=== PATIENT | female | born 1960 | race Caucasian/White ===

== ENCOUNTER 2018-01-13 22:59 | Emergency (ER) | payer OTHER ==
[~2018-01-13] VITALS: Ht 162.6 cm; Wt 115.3 kg
[2018-01-13 23:10] VITALS: TEMP 36.6; Ht 162.6 cm; Wt 115.3 kg
--- NOTE | 2018-01-13 23:47 | EMERGENCY ROOM VISIT NOTE ---
History Report prepared by Iris: Doug Hunter Under the Supervision of: Dr. Wally Olivarez M.D. First contact with patient: 23:17 Chief Complaint: RIB PAIN Stated Complaint: FALL; HURT LEFT SIDE RIBS History of Present Illness The patient is a 57 year old female who presents to the Emergency Room with complaints of constant left sided rib pain beginning 13 hours ago. She currently rates her discomfort an 8/10 in severity. The patient states she was trying to pull her luggage with both hands. She reports her foot got caught and made her fall forward. The patient notes she landed on her left rib area. She states she was wearing a scoliosis brace on her lower back when she fell. The patient reports she took four ibuprofen around 12 hours ago, but it did not help. She notes twisting and pressing on it increases her discomfort. The patient reports she is short of breath and deep breathing hurts. The patient states her pain is physical from falling and does not think it is internal. She denies taking blood thinners. She notes she has a history of left sided pneumonia. Source of History: patient Onset: 13 hours ago Position: other (left sided rib) Symptom Intensity: 8/10 Timing: constant Modifying Factors (Worsening): movement (twisting), other (pressing on it) Associated Symptoms: + SOB Review of Systems See HPI for pertinent positives & negatives. A total of 10 systems reviewed and were otherwise negative. Past Medical & Surgical Medical Problems: (1) Asthma (2) Bronchitis (3) PNA (pneumonia) Family History Cancer Diabetes mellitus Heart disease Hypertension Lung disease Social History Smoking Status: Never Smoker Smokeless Tobacco Use: No Alcohol Use: none Marital Status: single Housing Status: lives alone Current/Historical Medications Scheduled PRN Oxycodone/Acetaminophen 5MG/325MG (Percocet 5MG/325MG), 1-2 TAB PO Q4H PRN for Pain Physical Exam Vital Signs Date Time Temp Pulse Resp B/P (MAP) Pulse Ox O2 Delivery O2 Flow Rate FiO2 01/14/18 01:50 75 16 159/71 100 01/13/18 23:10 36.6 77 16 168/85 100 Room Air Physical Exam GENERAL: Awake, alert, well-appearing, in no acute distress HENT: Normocephalic, atraumatic. Oropharynx unremarkable. Non-tender C-spine. EYES: Normal conjunctiva. Sclera non-icteric. NECK: Supple. No nuchal rigidity. FROM. No JVD. RESPIRATORY: Clear to auscultation. CARDIAC: Regular rate, normal rhythm. Extremities warm and well perfused. Pulses equal. ABDOMEN: Soft, non-distended. Tenderness to palpation of the 10th rib area on the left side. No rebound or guarding. No masses. RECTAL: Deferred. MUSCULOSKELETAL: Chest examination reveals no tenderness. The back is symmetrical on inspection without obvious abnormality. There is no CVA tenderness to palpation. No joint edema. Tenderness to the left shoulder. LOWER EXTREMITIES: Calves are equal size bilaterally and non-tender. No edema. No discoloration. NEURO: Normal sensorium. No sensory or motor deficits noted. SKIN: No rash or jaundice noted. Medical Decision & Procedures ER Provider Diagnostic Interpretation: X-ray results as stated below per interpretation by me: C-spine 6 views: No evidence of fracture, dislocation, or subluxation. Surgical hardware in place. One view chest: No pneumothorax, congestion, or pneumonia. Four view of chest/left ribs: No acute fracture, dislocation, or subluxation. Three view of left shoulder: No acute fracture, dislocation, or subluxation. Medications Administered Medications (Trade) Dose Ordered Sig/Kaitlynn Route Start Time Stop Time Status Last Admin Dose Admin Ibuprofen (Motrin Tab) 600 mg NOW STAT PO 01/14/18 00:06 01/14/18 00:08 DC 01/14/18 00:14 600 MG Oxycodone/ Acetaminophen (Percocet 5-325mg Tab) 2 tab NOW ONCE PO 01/14/18 00:15 01/14/18 00:16 DC 01/14/18 00:13 2 TAB Oxycodone/ Acetaminophen (Percocet 5/ 325MG Home Pack) 1 homepack UD ONCE PO 01/14/18 01:15 01/14/18 01:16 DC 01/14/18 01:41 1 HOMEPACK ED Course 2352: Past medical records reviewed. The patient was evaluated in room A03. A complete history and physical examination was performed. 0006: Ordered Ibuprofen 600mg PO 0015: Ordered Oxycodone/Acetaminophen 2 tab PO 0115: Ordered Oxycodone/Acetaminophen 1 homepack PO 0116: Upon reexamination the patient is resting. I offered to do a CT scan of the chest to evaluate for blood and trauma. She refused and said she would follow-up with her orthopedic doctor at [facility]. I discussed results and treatment plan with the patient. She verbalizes agreement and understanding. The patient is ready for discharge. Medical Decision Differential diagnosis: Etiologies such as fracture, dislocation, intra-abdominal, pneumothorax, intrathoracic , intracranial, neurologic, as well as other traumatic pathologies were entertained. This is a 57-year-old female who presents emergency department complaining of rib pain after a fall. Using shared medical decision making with the patient I offered to do CAT scans of the patient's spine however the patient and I decided we were going to perform x-rays. She was sent for x-rays of her chest, ribs as well as shoulder. She does not appear to have any acute fractures dislocations or subluxations. The patient presents the emergency department during a period of high volume and high acuity. She was given ibuprofen as well as Percocet for the pain. The patient promises to follow-up with her primary care physician. Medication Reconcilliation Current Medication List: was personally reviewed by me Blood Pressure Screening Patient's blood pressure: Elevated blood pressure Blood pressure disposition: Referred to PCP Impression Primary Impression: Fall Additional Impressions: Left shoulder pain Rib pain on left side Scribe Attestation The scribe's documentation has been prepared under my direction and personally reviewed by me in its entirety. I confirm that the note above accurately reflects all work, treatment, procedures, and medical decision making performed by me. Departure Information Dispostion Home / Self-Care Prescriptions Oxycodone/Acetaminophen 5MG/325MG (PERCOCET 5MG/325MG) Tab 1-2 TAB PO Q4H Y for Pain, #14 TAB Prov: Wally Olivarez MD 01/14/18 Referrals No Doctor, Assigned (PCP) Forms HOME CARE DOCUMENTATION FORM, IMPORTANT VISIT INFORMATION, WORK / SCHOOL INSTRUCTIONS Patient Instructions ED Contusion Vs Minor Fx Rib, ED Fall Dizziness Weakn Balance, ED Shoulder Pain [facility], [facility] Additional Instructions Use incentive spirometer every 15 minutes Follow up with Orthopaedics for continued pain You were found to have an elevated blood pressure today (>120 sytolic or >90 diastolic). Per medicare guidelines, you need to follow up with this blood pressure screening with your Primary Care Physician (PCP). For a new PCP call [phone]. You received narcotic or benzodiazepene medication while in the emergency room today. This is an addictive medication that may cause drowziness as well as constipation. Do not drive, operate heavy machinery, or drink alcohol under the influence of this medication. Take 600 mg Ibuprofen every 6 hours Take Percocet for breakthrough pain Radiographs and CTs will be reread by a radiologist in the morning. You have been examined and treated today on an emergency basis only. This is not a substitute for, or an effort to provide, complete comprehensive medical care. It is impossible to recognize and treat all injuries or illnesses in a single emergency department visit. It is therefore important that you follow up closely with your PCP. Call as soon as possible for an appointment. Thank you for your time and consideration. I look forward to speaking with you again soon. Please don't hesitate to call us if you have any questions. Problem Qualifiers Primary Impression: Fall Encounter type: initial encounter Qualified Codes: W19.XXXA - Unspecified fall, initial encounter Additional Impressions: Left shoulder pain Chronicity: acute Qualified Codes: M25.512 - Pain in left shoulder
[2018-01-14] MEDS ORDERED: IBUPROFEN 600 MG TAB PO STA (00:06)
[2018-01-14] MEDS ORDERED: OXYCODONE/ACETAMINOPHEN 5-325 TAB PO ONE (00:15)
[2018-01-14] MEDS ORDERED: PERCOCET HOME PACK PO ONE (01:15)
[2018-01-14] MEDS ORDERED: OXYC-57 PO (01:21)
[2018-01-14 01:50] VITALS: BP 159/71; PULSE 75; O2SAT 100
--- NOTE | 2018-01-14 07:50 | DIAGNOSTIC IMAGING REPORT ---
C-SPINE ROUTINE 4 OR 5 VIEWS CLINICAL HISTORY: 57 years-old Female presenting with Pt c/o left sided rib pain. TECHNIQUE: Lateral, bilateral oblique, frontal, open-mouth odontoid, and swimmer's views of the cervical spine were obtained. COMPARISON: None. FINDINGS: Anterior cervical discectomy and fusion of C5-6. The C7 vertebral body is seen on swimmer's view only. Normal cervical lordosis. Vertebral bodies maintain normal height and alignment. Intervertebral disc heights spared at the nonoperative levels though the C6-7 intervertebral disc space likely has some degree of narrowing though suboptimally visualized. Disc osteophyte complex suggested at C6-7. No radiographic evidence of advanced osseous neural foraminal narrowing. No acute fracture or subluxation. Normal predental interval. Partially visualized internal fixation hardware in the skull. Lateral masses of C1 articulate normally with C2. Dens appears normal. No prevertebral soft tissue swelling. IMPRESSION: 1. Postsurgical changes of C5-6 ACDF. Adjacent level degenerative change suspected at C6-7 though this region is suboptimally visualized. 2. No radiographic evidence of acute osseous injury. Electronically signed by: Arturo Mark M.D. 01/14/2018 7:48 AM Dictated Date/Time: 01/14/2018 7:38 AM
--- NOTE | 2018-01-14 07:52 | DIAGNOSTIC IMAGING REPORT ---
L RIBS UNILATERAL WITH PA CHEST CLINICAL HISTORY: 57 years-old Female presenting with Pt c/o left sided rib pain. TECHNIQUE: Frontal and oblique views of the left ribs as well as PA view of the chest were obtained. COMPARISON: None. FINDINGS: Anterior cervical fusion hardware noted. No displaced left rib fracture. Cardiac silhouette mildly prominent though this may be due to prominent pericardial fat. Lungs and pleural spaces clear. Upper abdomen normal. IMPRESSION: 1. No displaced left rib fracture. 2. No acute cardiopulmonary disease. Electronically signed by: Arturo Mark M.D. 01/14/2018 7:51 AM Dictated Date/Time: 01/14/2018 7:38 AM
--- NOTE | 2018-01-14 07:54 | DIAGNOSTIC IMAGING REPORT ---
L SHOULDER MIN 2 VIEWS ROUTINE CLINICAL HISTORY: 57 years-old Female presenting with Pt c/o Left sided shoulder pain . TECHNIQUE: Internal rotation, external rotation, Grashey views of the left shoulder were obtained. COMPARISON: None. FINDINGS: Glenohumeral and acromioclavicular joints congruent. Mild osteophytosis noted at the inferior aspect of the bony glenoid. No deformity of the humeral head are no subluxation of the humeral head. No significant degenerative change of the acromioclavicular joint. No acute fracture or malalignment. No radiographic soft tissue abnormality. Anterior cervical fusion hardware noted. IMPRESSION: 1. No acute osseous injury. 2. Mild degenerative changes of the glenohumeral joint. Electronically signed by: Arturo Mark M.D. 01/14/2018 7:53 AM Dictated Date/Time: 01/14/2018 7:38 AM
== END 2018-01-14 01:50 | disposition home or self-care (01) ==
LOC: MERGE 23:03 → C.EDB 23:03 → C.EDA 01-14 01:50
DX: M25.512 Pain in left shoulder (principal); R07.81 Pleurodynia; W01.0XXA Fall on same level from slipping, tripping and stumbling without subsequent striking against object, initial encounter; J45.909 Unspecified asthma, uncomplicated

== ENCOUNTER 2023-05-09 05:46 | Inpatient (IN) ==
--- OUTSIDE RECORDS SUMMARY | 2023-05-09 05:58 | External Medical Summary | Summary of Care ---
Author Name Unknown Organization [facility] Address [address] [place] [address] Phone [phone] Care Team Providers Care Green Building Engineer Name Role Phone Kelli Munoz MD Primary Care Provider [phone] Encounter Details Date Type Department Care Team (Late st Contact Info) Description 05/07/2023 3:00 PM EST Telemedicine Formerly [facility] [address] [place] [address] Altagracia Love MD [address] [place] [address] Left leg cellulitis*; Eczema, unspecified type; Body mass index (BMI) of 40.0 to 44.9 in adult (HCC); Essential hypertension with goal blood pressure less than 130/80 Allergies Active Allergy Reactions Criticality Noted Date Comments Isak Inhibitors Cough 10/06/2018 Carbamazepine Other (Please comment) 05/29/1997 Diplopia, buzzing feeling and tremor. No problems with oxcarbazepine. Pt taking generic Codeine High Dermatological problems, e.g., rash, hivesrash Phenytoin Other (Please comment) 05/27/2018 hairloss Felbamate Other (Please comment) 05/29/1997 Sleep difficulties and balance problems [place] Hives Medium 05/27/2018 Gabapentin Rash 05/27/2018 Phenobarbital Other (Please comment) 05/27/2018 depression Tetracycline High Gastrointestinal problems, e.g., nausea, vomiting, diarrheagi upset Topiramate Other (Please comment) 07/09/2008 Hair loss Valproic Acid 05/29/1997 Hair loss Zonisamide Other (Please comment) 05/27/2018 depression documented as of this encounter (statuses as of 05/07/2023) Medications Medication Sig Dispensed Refills Start Date End Date Status ibuprofen (MOTRIN) 400 MG Tablet Take 1 Tablet by mouth every 6 hours as needed for Pain. 0 Active Albuterol Sulfate (ALBUTEROL HFA) 108 (90 BASE) MCG/ACT inhaler Inhale 2 Puffs by mouth every 6 hours as needed for Wheezing. 6.7 g 3 04/17/2019 Active albuterol sulfate (PROVENTIL) (2.5 MG/3ML) 0.083% nebulizer solutionIndications:M ild persistent asthma without complication Inhale 1 Vial via nebulizer every 4 hours as needed for Wheezing. 120 Vial 11 07/10/2019 Active Ca Cit Malate-Cholecalcifero l 250-100 MG-UNIT TABSIndications:Sympt omatic localization-related epilepsy (HCC),Vitamin D deficiency TAKE 1 TABLET BY MOUTH EVERY DAY 120 Tab 2 08/28/2019 Active busPIRone (BUSPAR) 10 MG Tablet Take 1 Tab by mouth 2 times a day. 60 Tab 4 10/27/2019 Active Pramipexole Dihydrochloride 0.5 MG Oral Tablet (MIRAPEX) 1 in morning as needed, 2 in the evening 90 Tab 3 04/05/2020 Active Methocarbamol 500 MG Oral Tablet (Robamol) Take 1 Tablet by mouth daily as needed for Muscle spasms. For muscle spasm 30 Tablet 0 10/05/2022 Active Meclizine HCl 12.5 MG Oral Tablet (Antivert)Indications :Benign paroxysmal positional vertigo, unspecified laterality Take 1 Tablet by mouth 3 times a day as needed for Dizziness. 30 Tablet 1 10/05/2022 Active carBAMazepine 200 MG Oral Tablet (Tegretol)Indications :Seizure disorder (HCC) Take 1 Tablet by mouth in the morning and 1 Tablet before bedtime. 180 Tablet 3 10/13/2022 Active Levocetirizine Dihydrochloride 5 MG Oral Tablet Take 1 Tablet by mouth every evening. 90 Tablet 1 11/05/2022 Active Losartan Potassium 50 MG Oral Tablet (Cozaar) Take 1 Tablet by mouth in the morning. 90 Tablet 1 11/05/2022 Active Additional Information Patient not taking.Reported on 04/30/2023 Fluticasone-Salmetero l 250-50 MCG/ACT Inhalation Aerosol Powder Breath Activated (Advair Diskus) Inhale 1 Puff by mouth in the morning and 1 Puff before bedtime. 180 Each 1 11/05/2022 Active Spironolactone 25 MG Oral Tablet (Aldactone) Take 1 Tablet by mouth in the morning. 90 Tablet 1 11/05/2022 Active Premarin 0.625 MG/GM Vaginal Cream (Estrogens Conjugated)Indication s:Gross hematuria,Vaginal atrophy Apply 0.5 g topically to affected area in the morning. Once daily for 1 week then administer twice a week. 30 g 5 12/23/2022 Active B-12 1000 MCG Oral TabletIndications:B12 deficiency Take 1,000 mcg by mouth every evening. 30 Tablet 11 02/24/2023 Active Vitamin D3 1.25 MG (52322 UT) Oral TabletIndications:Vit smith D deficiency Take 1 Tablet by mouth once a week. 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 (at least 30 min prior to breakfast or other meds)-lab in 11 wks. 90 Tablet 0 03/09/2023 Active Sertraline HCl 50 MG Oral Tablet (Zoloft) Take 0.5 Tablets by mouth in the morning. 0 Active diazePAM 5 MG Oral Tablet (Valium) TAKE 1 TAB BY MOUTH 1.5 HRS PRIOR TO MRI THEN 1 TAB BY MOUTH 30 MINUTES PRIOR TO MRI IF NEEDED 0 04/05/2023 Active Hyoscyamine Sulfate 0.125 MG Sublingual Tablet Sublingual (Levsin) DISSOLVE 1 TABLET UNDER THE TONGUE FOUR TIMES DAILY NEEDED FOR DIARRHEA OR ABDOMINAL CRAMPING 0 04/16/2023 Active Sulfamethoxazole-Trim ethoprim 800-160 MG Oral Tablet (Bactrim DS)Indications:Left leg cellulitis Take 1 Tablet by mouth in the morning and 1 Tablet before bedtime. Do all this for 10 days. Until gone.. 20 Tablet 0 05/06/2023 3 Active Hospital, Clinic, or Other Facility Administered Medication Ordered Dose Route Frequency Start Date End Date Status albuterol sulfate (PROVENTIL) (2.5 MG/3ML) 0.083% inhalation solution 2.5 mgIndications:Mild persistent asthma without complication 2.5 mg NEBULIZER Q4H PRN 01/07/2019 Active documented as of this encounter (statuses as of 05/07/2023) Active Problems Problem Noted Date Diagnosed Date Osteopenia of multiple sites 10/31/2019 Irritable bowel syndrome with diarrhea 0 Body mass index (BMI) of 40.0 to 44.9 in adult 1 Overview: Per Obesity protocol - Per Obesity protocol Post traumatic stress disorder (PTSD) 07/21/2018 DDD (degenerative disc disease), cervical 2018 Epilepsy 05/27/2018 Essential hypertension with goal blood pressure less than 130/80 05/27/2018 Hiatal hernia 05/27/2018 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 Encouraged to take slow deep breath, use aero chamber, and rinse after steroid. Test performed by Ester SOLAR PROCESS ENGINEER CPFT. documented as of this encounter (statuses as of 05/07/2023) Resolved Problems Problem Noted Date Diagnosed Date Resolved Date Internal hemorrhoid 06/05/2019 10/31/19 20 Body mass index (BMI) of 45. 0 to 49.9 in adult 10/31/2018 03/08/2019 Overview: Per Obesity protocol ISAK-inhibitor cough 10/06/2018 07/10/19 20 Gastroesophageal reflux dise ase with esophagitis 05/27/2018 10/05/2022 documented as of this encounter (statuses as of 05/07/2023) Immunizations Name Administration Dates Next Due COVID-19 mRNA, LNP-s, No Pre serve, 2-Dose Series ([employer]) 05/15/2021,09/05/2020,08/15/2020 PPD 02/22/2007 Pneumococcal Polysaccharide PPV23 (Pneumovax) 09/17/2016 Seasonal Influenza Virus Vac cine, Unspecified Formulation 12/22/2017 Seasonal Influenza, PF, 6 M & above, IM , (FluLaval or Fluzone) 03/17/2022,02/03/2019 Seasonal Influenza, Quadriva lent, No Preserve, Peds 03/23/2018 Seasonal Influenza, Quadriva lent,with Preserve, 3 yr & above, IM 02/01/2018,04/12/2017,02/05/2016,04/16,03/29/2014,02/08/2013,02/12/2012 ,02/23/2011,02/26/2009 Seasonal Influenza, Recombin ant, RIV4, PF, (Flublock) 02/01/2018 Seasonal Influenza, Split, I IV3, With Preserve, Inj 03/23/2018,02/01/2018,12/22/2017,04/12,02/05/2016,04/16/2015,03/29/2014 ,02/08/2013,02/12/2012,02/23/2011,10/2008 TD - Tetanus/Diptheria (ADULT) 01/23/2004 TDAP (age 10 and older)(Boostrix) 12/12/2018, Varicella Zoster Vaccine (Adult) 11/07/2014 Zoster Vaccine Recombinant (Shingrix) 09/17/2017 documented as of this encounter Social History Tobacco Use Types Packs/Day Years Used Date Smoking Tobacco: Never Smokeless Tobacco: Never Alcohol Use Standard Drinks/Week Comments No 0 (1 standard drink = 0.6 oz pur e alcohol) AUDIT-C Answer Date Recorded Frequency of Alcohol Consumption Never 05/27/2018 Average Number of Drinks Not on file 019 Frequency of Binge Drinking Not on file 08/2018 PHQ-2 Answer Date Recorded PHQ-2 Score 2 02/03/2019 Hunger Vital Sign Answer Date Recorded Within the past 12 months, y ou worried that your food would run out before you got the money to buy more. Never true 02/09/20 23 Within the past 12 months, t he food you bought just didn't last and you didn't have money to get more. Never true 02/08/2023 Sex and Gender Information Value Date Recorded Sex Assigned at Female 10/06/2018 4:00 PM EDT Gender Identity Female 10/06/2018 4:00 PM EDT Sexual Orientation Straight 10/06/2018 4: 00 PM EDT Job Start Date Occupation Industry Not on file Not on file Not on file documented as of this encounter Progress Notes * Altagracia Love MD - 05/07/2023 2:36 PM EST Subjective Catrachita Peres is a 62 year old female. No chief complaint on file. HPI: Patient location: HOME. I was in a hospital or clinic location. After connecting through [employer],patient was verified with two unique identifiers. Patient (or authorized legal mechanical service representative) was then informed that this was a Telemedicine visit and being conducted confidentially over secure lines. Methods to assure confidentiality were taken. Patient acknowledged consent and understanding of pr ivacy and security of the Telemedicine visit. The patient agreed to participate. Here for one day f/u on her leg cellulitis , Lt Was seen by other provider yesterday and took bactrim since yesterday Per pt , due to low BP and recurrent dizziness, stopped losartan and spironolactone recently Has itching legs , worse since last wed, had scratched Hx of MRSA infection Eczema + Applying body lotion too Reviewed yesterday note and pictures PMH: Patient Active Problem List Diagnosis Code DDD (degenerative disc disease), cervical M50.30 Epilepsy ([facility]) G40.909 Essential hypertension with goal blood pressure less than 130/80 I10 Hiatal hernia K44.9 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 E03.8, E06.3 Moderate episode of recurrent major depressive disorder ([facility]) F33.1 ROSE (obstructive sleep apnea) G47.33 Mild persistent asthma without complication J45.30 Post traumatic stress disorder (PTSD) F43.10 Body mass index (BMI) of 40.0 to 44.9 in adult ([facility]) Z68.41 Irritable bowel syndrome with diarrhea K58.0 Osteopenia of multiple sites M85.89 Current Outpatient Medications Medication Sig Dispense Refill ibuprofen (MOTRIN) 400 MG Tablet Take 1 Tablet by mouth every 6 hours as needed for Pain. Albuterol Sulfate (ALBUTEROL HFA) 108 (90 BASE) MCG/ACT inhaler Inhale 2 Puffs by mouth every 6 hours as needed for Wheezing. 6.7 g 3 albuterol sulfate (PROVENTIL) (2.5 MG/3ML) 0.083% nebulizer solution Inhale 1 Vial via nebulizer every 4 hours as needed for Wheezing. 120 Vial 11 Ca Cit Malate-Cholecalciferol 250-100 MG-UNIT TABS TAKE 1 TABLET BY MOUTH EVERY DAY 120 Tab 2 busPIRone (BUSPAR) 10 MG Tablet Take 1 Tab by mouth 2 times a day. 60 Tab 4 Pramipexole Dihydrochloride 0.5 MG Oral Tablet (MIRAPEX) 1 in morning as needed, 2 in the evening 90 Tab 3 Methocarbamol 500 MG Oral Tablet (Robamol) Take 1 Tablet by mouth daily as needed for Muscle spasms. For muscle spasm 30 Tablet 0 Meclizine HCl 12.5 MG Oral Tablet (Antivert) Take 1 Tablet by mouth 3 times a day as needed for Dizziness. 30 Tablet 1 carBAMazepine 200 MG Oral Tablet (Tegretol) Take 1 Tablet by mouth in the morning and 1 Tablet before bedtime. 180 Tablet 3 Levocetirizine Dihydrochloride 5 MG Oral Tablet Take 1 Tablet by mouth every evening. 90 Tablet 1 Losartan Potassium 50 MG Oral Tablet (Cozaar) Take 1 Tablet by mouth in the morning. (Patient not taking: Reported on 04/30/2023) 90 Tablet 1 Fluticasone-Salmeterol 250-50 MCG/ACT Inhalation Aerosol Powder Breath Activated (Advair Diskus) Inhale 1 Puff by mouth in the morning and 1 Puff before bedtime. 180 Each 1 Spironolactone 25 MG Oral Tablet (Aldactone) Take 1 Tablet by mouth in the morning. 90 Tablet 1 Premarin 0.625 MG/GM Vaginal Cream (Estrogens Conjugated) Apply 0.5 g topically to affected area inthe morning. Once daily for 1 week then administer twice a week. 30 g 5 B-12 1000 MCG Oral Tablet Take 1,000 mcg by mouth every evening. 30 Tablet 11 Vitamin D3 1.25 MG (10695 UT) Oral Tablet Take 1 Tablet by mouth once a week. 12 Tablet 0 Levothyroxine Sodium 100 MCG Oral Tablet (Levoxyl) Take 1 Tablet by mouth in the morning. (at least30 min prior to breakfast or other meds)-lab in 11 wks. 90 Tablet 0 Sertraline HCl 50 MG Oral Tablet (Zoloft) Take 0.5 Tablets by mouth in the morning. diazePAM 5 MG Oral Tablet (Valium) TAKE 1 TAB BY MOUTH 1.5 HRS PRIOR TO MRI THEN 1 TAB BY MOUTH 30 MINUTES PRIOR TO MRI IF NEEDED Hyoscyamine Sulfate 0.125 MG Sublingual Tablet Sublingual (Levsin) DISSOLVE 1 TABLET UNDER THE TONGUE FOUR TIMES DAILY NEEDED FOR DIARRHEA OR ABDOMINAL CRAMPING Sulfamethoxazole-Trimethoprim 800-160 MG Oral Tablet (Bactrim DS) Take 1 Tablet by mouth in the morning and 1 Tablet before bedtime. Do all this for 10 days. Until gone.. 20 Tablet 0 Current Facility-Administered Medications Medication Dose Route Frequency Provider Last Rate Last Admin albuterol sulfate (PROVENTIL) (2.5 MG/3ML) 0.083% inhalation solution 2.5 mg 2.5 mg Nebulizer Q4H VIR[place]IAN Marcos Pal MD 2.5 mg at 05/10/19 1322 Past Medical History: Diagnosis Date ISAK-inhibitor cough 10/06/2018 Asthma DDD (degenerative disc disease), cervical 05/27/2018 Epilepsia Epilepsy (HCC) 05/27/2018 Essential hypertension with goal blood pressure less than 130/80 05/27/2018 Gastroesophageal reflux disease with esophagitis 05/27/2018 Breann's disease 05/27/2018 Hypothyroidism Internal hemorrhoid 06/05/2019 Irritable bowel syndrome with diarrhea 06/05/2019 Mild persistent asthma without complication 05/27/2018 Moderate episode of recurrent major depressive disorder (HCC) 05/27/2018 ROSE (obstructive sleep apnea) 05/27/2018 Post traumatic stress disorder (PTSD) 07/21/2018 Past Surgical History: Procedure Laterality Date CRAN LOBE,TEMPORAL W ELECT Left 1996 L-/S-SPINE PARAVERTEBRAL FACET INJ,1 LEVEL 03/16/2019 L-/S-SPINE PARAVERTEBRAL FACET INJ, 1 LEVEL performed by Jt Jacobo, at OR [facility] L-/S-SPINE PARAVERTEBRL FACET INJ,2 LEVELS 03/16/2019 L-/S-SPINE PARAVERTEBRAL FACET INJ, 2 LEVELS performed by Jt Tos, at OR [facility] NECK SPINE FUSION (CERV, BELOW C2) 2007 REMOVAL OF ADENOIDS, UNDER AGE 12 REMOVAL OF TONSILS, UNDER AGE 12 REPAIR OF NASAL SEPTUM 2014 REVISE UPPER EYELID Left 2015 SACROILIAC JOINT INJECT W/GUIDANCE 07/29/2020 INJECTION SACROILIAC JOINT performed by Jt Jacobo DO at OR [facility] Review of patient's allergies indicates: Allergen Reactions Codeine Dermatological problems, e.g., rash, hivesrash Tetracycline Gastrointestinal problems, e.g., nausea, vomiting, diarrheagi upset [place] Hives Isak Inhibitors Cough Carbamazepine Other (Please comment) Diplopia, buzzing feeling and tremor. No problems with oxcarbazepine. Pt taking generic Dilantin [Phenytoin] Other (Please comment) hairloss Felbamate Other (Please comment) Sleep difficulties and balance problems Neurontin [Gabapentin] Rash Phenobarbital Other (Please comment) depression Topiramate Other (Please comment) Hair loss Valproic Acid Hair loss Zonegran [Zonisamide] Other (Please comment) depression Family History Problem Relation Age of Onset Diabetes Mother dec age 61 Coronary Artery disease Mother Lung cancer Father Diabetes Father COPD Father Other (aortic aneursym) Father Other (murder) Sister Bipolar Disorder Brother Multiple Sclerosis Sister (Half) Family Status Relation Status Mo Fa Sis (Not Specified) Bro (Not Specified) HSIS (Not Specified) Social History Socioeconomic History Marital status: Single Spouse name: Not on file Number of children: Not on file Years of education: Not on file Highest education level: Not on file Occupational History Not on file Tobacco Use Smoking status: Never Smokeless tobacco: Never Substance and Sexual Activity Alcohol use: No Drug use: No Sexual activity: Not Currently Other Topics Concern Not on file Social History Narrative Not on file Social Determinants of Health Financial Resource Strain: Not on file Food Insecurity: No Food Insecurity (02/08/2023) Hunger Vital Sign Worried About Running Out of Food in the Last Year: Never true Ran Out of Food in the Last Year: Never true Transportation Needs: Not on file Physical Activity: Not on file Stress: Not on file Social Connections: Not on file Intimate Partner Violence: Not on file Housing Stability: Not on file Review of Systems Constitutional: Positive for fatigue. Negative for activity change, appetite change, chills, diaphoresis, fever and unexpected weight change. Respiratory: Negative for shortness of breath. Cardiovascular: Positive for leg swelling. Negative for chest pain and palpitations. Skin: Positive for rash. Neurological: Negative for dizziness and light-headedness. Psychiatric/Behavioral: Positive for agitation. Negative for behavioral problems. The patient is nervous/anxious. Objective LMP (LMP Unknown) Physical Exam Constitutional: General: She is not in acute distress. Appearance: Normal appearance. She is obese. She is not ill-appearing, toxic- appearing or diaphoretic. HENT: Head: Normocephalic and atraumatic. Nose: Nose normal. Eyes: Extraocular Movements: Extraocular movements intact. Skin: Findings: Erythema (lt leg lower) and rash present. Comments: Pictures Neurological: Mental Status: She is alert and oriented to person, place, and time. Psychiatric: Comments: Anxiety ASSESSMENT/PLAN: Left leg cellulitis (Primary) Eczema, unspecified type Body mass index (BMI) of 40.0 to 44.9 in adult (HCC) Essential hypertension with goal blood pressure less than 130/80 Resume spironolactone 25 mg daily And cont bactrim for now If not improving by sun morning, go to ER for possible IV ABx Leg elevation Altagracia Love MD documented in this encounter Plan of Treatment Upcoming Encounters Date Type Department Care Team (Latest Contact Info) Description 05/26/2023 1:00 PM EST Imaging Radiology [address] [facility] [place] [address] 06/23/2023 11:00 AM EST Telemedicine Urology ImeldaIrene Burch [facility] [address] [place] [address] Jah Puentes MD [address] [place] [address] 7, Telemed [facility] Urology Ex [address] [facility] [place] [address] 07/20/2023 1:25 PM EST Telemedicine Neurology, [place] [address] [place] [address] Bowen Faustin MD [address] [place] [address] 08/25/2023 1:00 PM EDT Office Visit General Internal Medicine [employer] [address] [facility] [place] [address] Kelli Munoz MD [address] [facility] [place] [address] 09/06/2023 11:15 AM EDT Hospital Encounter ENDO [facility], Endoscopy Room [facility] [address] [place] [phone] James Smith MD [address] [place] [address] 09/06/2023 11:15 AM EDT - 09/06/2023 11:45 AM EDT Surgery ENDO [facility], Endoscopy Room [facility] [address] [place] [phone] James Smith MD [address] [place] [address] COLONOSCOPY FLEXIBLE PROXIMAL DIAGNOSTIC Scheduled Procedures Name Priority Associated Diagnoses Date/Ti me COLONOSCOPY FLEXIBLE PROXIMAL DIAGNOSTIC History of colonic polyps 09/06/2023 11:15 AM EDT Health Maintenance Due Date Last Done Comments HIV Screening 1975 Albumin/Creatinine Ratio 12/12/1979 Hepatitis C Screening 12/12/1979 HPV/Co-Test 12/12/1991 Pneumococcal Vaccine: Pediatrics (0 to 5 Years) and At-Risk Patients (6 to 64 Years) (2 - PCV) 09/17/2017 09/17/2016 Zoster Vaccines (3 of 3) 11/12/2017 09/17/2017, 10/22 Depression Screening 02/04/2020 02/03/2019 COLONOSCOPY-EVERY 5 YRS AGES 18-100 08/31/2022 08/31/2017 COVID-19 Vaccine (4 - 2022- season) 2023 05/15/2021, 09/05/2020, 08/15/2020 Influenza Vaccine (FLU shot) (#1) 2023 03/17/2022, 02/03/2019, 03/23/2018, Additional history exists DXA Scan 02/17/2023 02/17/2021, 11/08/2017 Mammogram 05/19/2023 05/19/2022, 12/23, 11/08/2017, Additional history exists GFR 03/03/2024 03/03/2023, 0909/2022, 12/10/2022, Additional history exists TSH 03/03/2024 03/03/2023, 08/23, 10/31/2019, Additional history exists Cervical Cancer Screening 07/21/2024 Pap Smear 07/21/2024 07/21/2021, 12/21/2017 Diabetes Screening 03/03/2026 03/03/2023, 0 01/26/2023, 12/10/2022, Additional history exists Lipid Panel 03/03/2028 03/03/2023, 08/23, 10/08/2017, Additional history exists DTaP,Tdap,and Td Vaccines (3 - Td or Tdap) 12/12/2028 12/12/2018, 12/18/2014, 01/23/2004 GARDASIL-HPV IMMUNIZATION SERIES Aged Out No longer eligible based on patient's age to complete this topic Hepatitis B Aged Out No longer eligi ble based on patient's age to complete this topic MENINGOCOCCAL (MENACTRA/MENVEO) Aged Out No longer eligible based on patient's age to complete this topic documented as of this encounter Medical Devices Not on filedocumented as of this encounter Visit Diagnoses Diagnosis Left leg cellulitis- Primary Cellulitis and abscess of leg, except foot Eczema, unspecified type Body mass index (BMI) of 40.0 to 44.9 in adult (HCC) Essential hypertension with goal blood pressure less than 130/80 History of colonic polyps Personal history of colonic polyps documented in this encounter Care Teams Green Building Engineer Relationship Specialty Start Date End Date Kelli Munoz MD [address] [place] [address] PCP - General Internal Medicine 10/05/22 documented as of this encounter
[2023-05-09 06:22] LABS: Basophils # (auto) 0.04 K/uL (0.00-0.20); Basophils % (auto) 0.5 %; Eosinophils # (auto) 0.08 K/uL (0.00-0.50); Eosinophils % (auto) 1.1 %; Hematocrit (blood only) 39.1 % (37.0-47.0); Hemoglobin 13.7 g/dl (12.0-16.0); Immature Granulocytes # (auto) 0.03 K/uL (0.01-0.20); Immature Granulocytes % (auto) 0.4 %; Lymphocytes # (auto) 1.72 K/uL (1.20-3.40); Lymphocytes % (auto) 23.4 %; Mean Corpuscular Hemoglobin 32.9 pg (25.0-34.0); Mean Corpuscular Volume 93.8 fL (80.0-100.0); Monocytes # (auto) 0.63 K/uL (0.11-0.59); Monocytes % (auto) 8.6 %; Neutrophils # (auto) 4.85 K/uL (1.40-6.50); Platelet Count 222 K/uL (130-400); RDW Coefficient of Variation 12.6 % (11.5-14.5); RDW Standard Deviation 43.1 fL (36.4-46.3); Red Blood Count 4.17 M/uL (4.20-5.40); White Blood Count 7.35 K/ul (4.8-10.8)
[2023-05-09 06:39] LABS: Albumin Globulin Ratio 1.2 (0.9-2); Albumin Level 4.1 gm/dl (3.4-5.0); BUN Creatinine Ratio 16.3 (10-20); Bilirubin,Total 0.4 mg/dl (0.2-1.0); Calcium 9.6 mg/dl (8.6-10.3); Est GFR (African American) 72.2 ml/min; Est GFR (Non-African American) 62.3 ml/min; Globulin 3.4 gm/dl (2.5-4.0); Potassium 3.6 mmol/L (3.5-5.1); Total Protein 7.5 gm/dl (6.0-8.3)
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
[2023-05-09] MEDS ORDERED: cefTRIAXone SODIUM 2,000 MG/50 ML BAG IV STA (06:46)
--- NOTE | 2023-05-09 06:51 | Ultrasound Report ---
ULTRASOUND LEFT LOWER EXTREMITY VENOUS CLINICAL HISTORY: Left leg swelling and erythema. COMPARISON STUDY: No priors. TECHNIQUE: Real-time, grayscale, and color Doppler sonography of the deep veins of the left lower ext remity was performed from the inguinal crease to the calf. Compression and augmentation were utilized . FINDINGS: There is no sonographic evidence of deep venous thrombosis identified in the left lower ext remity. The common femoral, superficial femoral, and popliteal veins are patent and normally compress ible. The greater saphenous vein and the profunda femoris vein at the junction with the common femora l vein are clear. The visualized calf veins are patent. Prominent left inguinal lymph nodes are likel y reactive. IMPRESSION: There is no sonographic evidence of deep venous thrombosis identified in the left lower e xtremity. ACT 112: Negative or not required by law. Electronically signed by: Jose R Montaño M.D. 05/09/2023 6:50 AM
[2023-05-09] MEDS ORDERED: ALBUTEROL HFA 8 GM INHALER INH PRN (08:43)
[2023-05-09] MEDS ORDERED: METHOCARBAMOL 500 MG TABLET PO PRN (08:43)
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
[2023-05-09] MEDS ORDERED: HYOSCYAMINE SULFATE 0.125 MG TAB PO PRN (08:55)
[2023-05-09] MEDS ORDERED: VANCOMYCIN CONSULT ACTIVE PRN (10:10)
--- NOTE | 2023-05-09 10:58 | Pharmacy Report ---
Pharmacy PK ABX Note - Date of Service May 09, 2023 - Assessment and Plan Assessment 62 year old F receiving Vancomycin and Cefepime for treatment of left lower extremity cellulitis. * Day #1 of antimicrobial therapy. * HPI: Failed outpatient treatment with 4 days of Bactrim and Keflex. * Labs/Vitals: Afebrile. No leukocytosis. Renal fxn slightly elevated from baseline, 0.98 mg/dL. * Micro: L leg culture pending. Plan Vancomycin * Loading dose: 2750 mg IV x 1 * Maintenance dose: 1250 mg IV every 18 hours * Regimen is predicted to achieve target AUC/DAVI of 400-600 mg/L.hr * Random level ordered for: 05/12/23 Cefepime * 2000 mg IV every 8 hours - appropriate Pharmacy will continue to follow and will adjust dose/frequency as necessary. Thank you. Pharmacy has transitioned to AUC monitoring for vancomycin. AUC/DAVI is the preferred PK/PD target and is associated with decreased risk of nephrotoxicity compared to traditional trough targets.
[2023-05-09] MEDS ORDERED: VANCOMYCIN HCL 2,750 MG in SODIUM CHLORIDE 0.9% 500 ML IV ONE (11:00)
[2023-05-09] MEDS: carBAMazepine 200 MG TABLET PO SCH ×2 (11:15→20:53)
[2023-05-09] MEDS: SERTRALINE HCL 50 MG TABLET PO SCH (11:15)
[2023-05-09] MEDS: busPIRone 5 MG TAB PO SCH ×2 (11:15→20:53)
[2023-05-09] MEDS: CEFEPIME 2,000 MG in SYRINGE 0 ML IV SCH ×2 (11:16→20:53)
[2023-05-09] MEDS: CALCIUM 600MG + VIT D 400 IU TAB PO SCH (11:16)
[2023-05-09] MEDS: ENOXAPARIN INJ 40 MG/0.4 ML SYR SQ SCH (11:16)
[2023-05-09] MEDS: LEVOTHYROXINE SODIUM 100 MCG TABLET PO SCH (17:38)
[2023-05-09] MEDS: PRAMIPEXOLE DIHYDROCHLO 0.5 MG TAB PO SCH (20:52)
[2023-05-09] MEDS: CYANOCOBALAMIN (B-12) 500 MCG TABLET PO SCH (20:53)
[2023-05-09] MEDS: CETIRIZINE HCL 10 MG TABLET PO SCH (20:53)
[2023-05-09] MEDS: VANCOMYCIN HCL 1,250 MG in SODIUM CHLORIDE 0.9% 250 ML IV SCH (21:57)
[2023-05-09] MEDS ORDERED: MELATONIN 3 MG TAB PO PRN (22:15)
[2023-05-09] MEDS: guaiFENesin 600 MG TABCR PO SCH (22:43)
[2023-05-10] MEDS: CEFEPIME 2,000 MG in SYRINGE 0 ML IV SCH ×3 (05:08→20:20)
[2023-05-10] MEDS: LEVOTHYROXINE SODIUM 100 MCG TABLET PO SCH (05:11)
[2023-05-10 07:33] LABS: Basophils # (auto) 0.04 K/uL (0.00-0.20); Basophils % (auto) 0.8 %; Eosinophils # (auto) 0.09 K/uL (0.00-0.50); Eosinophils % (auto) 1.8 %; Hematocrit (blood only) 35.3 % (37.0-47.0); Hemoglobin 12.1 g/dl (12.0-16.0); Immature Granulocytes # (auto) 0.01 K/uL (0.01-0.20); Immature Granulocytes % (auto) 0.2 %; Lymphocytes % (auto) 23.9 %; Mean Corpuscular Hemoglobin 32.4 pg (25.0-34.0); Mean Corpuscular Hgb Conc 34.3 g/dL (32.0-36.0); Mean Corpuscular Volume 94.6 fL (80.0-100.0); Mean Platelet Volume 8.6 fL (9.4-12.4); Monocytes # (auto) 0.38 K/uL (0.11-0.59); Monocytes % (auto) 7.6 %; Neutrophils % (auto) 65.7 %; Platelet Count 181 K/uL (130-400); RDW Coefficient of Variation 12.4 % (11.5-14.5); RDW Standard Deviation 42.9 fL (36.4-46.3); Red Blood Count 3.73 M/uL (4.20-5.40); White Blood Count 5.02 K/ul (4.8-10.8)
[2023-05-10] MEDS: SERTRALINE HCL 50 MG TABLET PO SCH (07:44)
[2023-05-10] MEDS: CALCIUM 600MG + VIT D 400 IU TAB PO SCH (07:44)
[2023-05-10] MEDS: guaiFENesin 600 MG TABCR PO SCH ×3 (07:44→22:16)
[2023-05-10] MEDS: FLUTICASONE/VILANTEROL 100/25MCG 14 PUFFS/INHALER INH SCH (07:45)
[2023-05-10] MEDS: busPIRone 5 MG TAB PO SCH ×3 (07:45→22:16)
[2023-05-10] MEDS: carBAMazepine 200 MG TABLET PO SCH ×3 (07:45→22:17)
[2023-05-10 07:56] LABS: Albumin Globulin Ratio 1.3 (0.9-2); Albumin Level 3.5 gm/dl (3.4-5.0); BUN Creatinine Ratio 14.1 (10-20); Bilirubin,Total 0.5 mg/dl (0.2-1.0); Calcium 9.1 mg/dl (8.6-10.3); Creatinine Clr Calc Pharmacy 88.8 ml/min; Est GFR (African American) 85.7 ml/min; Globulin 2.8 gm/dl (2.5-4.0); Magnesium 1.9 mg/dl (1.7-2.4); Phosphorus 3.5 mg/dl (2.5-4.9); Potassium 4.2 mmol/L (3.5-5.1); Total Protein 6.3 gm/dl (6.0-8.3)
--- NOTE | 2023-05-10 10:34 | Hospitalist Progress Note ---
Date of Service May 10, 2023 Assessment & Plan (1) Cellulitis of left leg: (2) HTN (hypertension): (3) Hypothyroidism: (4) Restless leg syndrome: (5) PTSD (post-traumatic stress disorder): (6) Eczema: (7) NAFLD (nonalcoholic fatty liver disease): (8) IBS (irritable bowel syndrome): (9) GERD (gastroesophageal reflux disease): (10) Sleep apnea: (11) DDD (degenerative disc disease), cervical: Plan 62yoF with PMhx significant for HTN, hypothyroidism, Hx of epilepsy s/p L temporal lobectomy in 1996, ROSE, asthma, IBS with diarrhea, nonalcoholic fatty liver disease, DDD, MDD, PTSD, RLS and eczema admitted with LLE cellulitis. Cellulitis, LLE Failed outpt treatment with Bactrim and Keflex, started 4 days prior to arrival Doppler US in ED with no acute DVT Wound culture with no significant growth at 24hrs Received dose of IV Rocephin in the ED, broadened further to Cefepime to cover for pseudomonas Empiric Vancomycin started Hold home Bactrim and Keflex Consider further imaging if symptoms do not improve- symptoms are improving Follow Cx to assist in narrowing abx Continue to monitor for signs of improvement -erythema improving on 05/10, outlined once more with a marker, not as tender to touch, still warm Asthma/Allergies- continue home inhalers, cetirizine IBS-D- continue home prn hyoscyamine Hx of epilepsy- continue home tegretol RLS- continue home pramipexole MDD, PTSD- continue home zoloft Hypothyroidism- continue home levothyroxine DDD, chronic pain- continue home robabmol, ibuprofen CODE STATUS: Full code per discussion with pt DVT prophylaxis: Lovenox SQ Diet: Regular Dispo: Med/Surg Admission and Anticipated Discharge Date Admission Date: May 09, 2023 Subjective Pt seen in the AM. Multiple questions answered and discussed treatment plan and goals. Lesion was outlined once more. Pt stated that the leg was less tender, noted improvement in the wound. Review of Systems Review of Systems: All systems reviewed & are unremarkable except as noted in Subjective Physical Exam Physical Exam: General: Alert, oriented. No acute distress Skin: LLE with erythematous plaque with areas of papules, warm Psych: Appropriate mood and affect Neuro: No gross deficits while laying in bed HEENT: NC/AT Chest: Nontender to palpation. CV: RRR Resp: Breath sounds clear bilaterally, no increased effort of breathing. Abdomen: Soft, nontender, nondistended. Extremities: LLE with erythematous plaque with areas of papules, warm Results & Data Results & Data Vital Signs (Past 12 Hours) Vital Signs Temp Pulse Resp BP Pulse Ox O2 Del Method 05/10/23 07:53 37.1 C 84 16 129/76 95 Room Air (2) HTN (hypertension) Hypertension type: unspecified Qualified Code(s): I10 - Essential (primary) hypertension (6) Eczema Eczema type: unspecified Qualified Code(s): L30.9 - Dermatitis, unspecified
[2023-05-10] MEDS: ENOXAPARIN INJ 40 MG/0.4 ML SYR SQ SCH (11:49)
[2023-05-10] MEDS: VANCOMYCIN HCL 1,250 MG in SODIUM CHLORIDE 0.9% 250 ML IV SCH (15:39)
[2023-05-10] MEDS: CYANOCOBALAMIN (B-12) 500 MCG TABLET PO SCH ×2 (20:14→22:17)
[2023-05-10] MEDS: CETIRIZINE HCL 10 MG TABLET PO SCH ×2 (20:14→22:18)
[2023-05-10] MEDS: PRAMIPEXOLE DIHYDROCHLO 0.5 MG TAB PO SCH ×2 (20:15→22:19)
[2023-05-11] MEDS ORDERED: diphenhydrAMINE Capsule 25 MG CAP PO PRN (02:19)
[2023-05-11] MEDS: CEFEPIME 2,000 MG in SYRINGE 0 ML IV SCH (04:57)
[2023-05-11] MEDS ORDERED: ADVANCED PROBIOTIC 1250 MG CAPSULE PO SCH (05:40)
[2023-05-11] MEDS: LEVOTHYROXINE SODIUM 100 MCG TABLET PO SCH (05:56)
[2023-05-11 06:21] LABS: Basophils # (auto) 0.04 K/uL (0.00-0.20); Basophils % (auto) 0.8 %; Eosinophils # (auto) 0.08 K/uL (0.00-0.50); Eosinophils % (auto) 1.5 %; Hematocrit (blood only) 35.6 % (37.0-47.0); Hemoglobin 11.9 g/dl (12.0-16.0); Immature Granulocytes # (auto) 0.03 K/uL (0.01-0.20); Immature Granulocytes % (auto) 0.6 %; Lymphocytes # (auto) 1.36 K/uL (1.20-3.40); Lymphocytes % (auto) 25.8 %; Mean Corpuscular Hemoglobin 31.9 pg (25.0-34.0); Mean Corpuscular Hgb Conc 33.4 g/dL (32.0-36.0); Mean Corpuscular Volume 95.4 fL (80.0-100.0); Mean Platelet Volume 8.9 fL (9.4-12.4); Monocytes # (auto) 0.35 K/uL (0.11-0.59); Monocytes % (auto) 6.6 %; Neutrophils # (auto) 3.41 K/uL (1.40-6.50); Neutrophils % (auto) 64.7 %; Platelet Count 155 K/uL (130-400); RDW Coefficient of Variation 12.3 % (11.5-14.5); Red Blood Count 3.73 M/uL (4.20-5.40); White Blood Count 5.27 K/ul (4.8-10.8)
[2023-05-11 06:32] LABS: Albumin Globulin Ratio 1.2 (0.9-2); Albumin Level 3.4 gm/dl (3.4-5.0); BUN Creatinine Ratio 18.3 (10-20); Bilirubin,Total 0.4 mg/dl (0.2-1.0); Calcium 8.7 mg/dl (8.6-10.3); Est GFR (African American) 89.5 ml/min; Est GFR (Non-African American) 77.2 ml/min; Globulin 2.9 gm/dl (2.5-4.0); Magnesium 1.8 mg/dl (1.7-2.4); Phosphorus 3.4 mg/dl (2.5-4.9); Potassium 3.7 mmol/L (3.5-5.1); Total Protein 6.3 gm/dl (6.0-8.3)
[2023-05-11] MEDS ORDERED: VANCOMYCIN HCL 1,000 MG in SODIUM CHLORIDE 0.9% 250 ML IV SCH (08:00)
--- NOTE | 2023-05-11 08:50 | Pharmacy Report ---
Pharmacy PK ABX Note - Date of Service May 11, 2023 - Assessment and Plan Assessment 62 year old F receiving Vancomycin and Cefepime for treatment of left lower extremity cellulitis. * Day #3 of antimicrobial therapy. * HPI: Failed outpatient treatment with 4 days of Bactrim and Keflex. * Labs/Vitals: Afebrile. No leukocytosis. Renal function appears to be at/near baseline, SCr: 0.82 mg/dL today * Micro: L leg culture growing coagulase negative Staphylococcus. Plan Vancomycin * Current regimen: 1250 mg IV every 18 hours * Random level obtained 05/11/23 resulted as 13.6 mcg/mL. This is predicted to achieve target AUC/DAVI of 400-600 mg/L.hr. However, will increase dosing to increase probability of AUC/DAVI target attainment. * Predicted AUC at steady state: 511 mg/L.hr * Change to 1000 mg IV every 12 hours * Repeat random level ordered for: 05/13/23 Cefepime * 2000 mg IV every 8 hours - appropriately dosed, consider de-escalation? Pharmacy will continue to follow and will adjust dose/frequency as necessary. Thank you. Pharmacy has transitioned to AUC monitoring for vancomycin. AUC/DAVI is the preferred PK/PD target and is associated with decreased risk of nephrotoxicity compared to traditional trough targets.
[2023-05-11] MEDS: CALCIUM 600MG + VIT D 400 IU TAB PO SCH (10:10)
[2023-05-11] MEDS: SERTRALINE HCL 50 MG TABLET PO SCH (10:10)
[2023-05-11] MEDS: FLUTICASONE/VILANTEROL 100/25MCG 14 PUFFS/INHALER INH SCH (10:10)
[2023-05-11] MEDS: ENOXAPARIN INJ 40 MG/0.4 ML SYR SQ SCH (10:11)
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
[2023-05-11] MEDS: guaiFENesin 600 MG TABCR PO SCH (11:01)
[2023-05-11] MEDS: busPIRone 5 MG TAB PO SCH (11:01)
[2023-05-11] MEDS: carBAMazepine 200 MG TABLET PO SCH (11:01)
== END 2023-05-11 13:11 | disposition home or self-care (01) | DRG 603 ==
LOC: ED 05:46 → 3W 07:52